=== PATIENT | male | born 1955 | race African-American/Black ===

== ENCOUNTER 2019-04-02 12:02 | Emergency (ER) | payer SELFPAY ==
[~2019-04-02] VITALS: Ht 170.2 cm; Wt 77.1 kg
[2019-04-02 12:21] VITALS: BP 155/95
--- NOTE | 2019-04-02 12:22 | NUR ---
Patient discharged to home in stable condition. Written and verbal after care instructions given. Patient verbalizes understanding of instruction.
== END 2019-04-02 12:20 | disposition home or self-care (01) ==
LOC: ER 12:05
DX: I10 Essential (primary) hypertension (principal); Z76.0 Encounter for issue of repeat prescription